=== PATIENT | female | born 1985 | race Caucasian/White ===

== ENCOUNTER → 2017-06-21 | Outpatient (CLI) | payer OTHER ==
[~2017-06-21] MED LIST: IBUP800 PO; Nystatin15 GM TOP; OXYACE5T PO; Percocet 5-3251 EACH PO; STOOL SOFTENER100 MG PO
== END ==
LOC: LAB SHORT 08:36 → PLD 08:36
DX: B97.7 Papillomavirus as the cause of diseases classified elsewhere (principal)
CPT/HCPCS: 88305

== ENCOUNTER → 2017-07-15 | Outpatient (CLI) | payer OTHER ==
[2017-07-16 11:28] LABS: Candida species (DNA Probe) Negative (NEGATIVE); G. vaginalis (DNA Probe) Positive (NEGATIVE); T. vaginalis (DNA Probe) Negative (NEGATIVE)
== END | disposition home or self-care (01) ==
LOC: LAB SHORT 11:24
PROVIDERS: Advanced Practice Midwife
DX: N89.8 Other specified noninflammatory disorders of vagina (principal)
CPT/HCPCS: 87480; 87510; 87660

== ENCOUNTER → 2018-06-13 | Outpatient (CLI) | payer OTHER ==
[2018-06-14 23:13] LABS: CHLAMYDIA TRACHOMATIS, NAA Negative (Negative); HPV 16 Positive (Negative); HPV 18 Negative (Negative); HPV OTHER HR TYPES Positive (Negative); NEISSERIA GONORRHOEAE, NAA Negative (Negative)
== END | disposition home or self-care (01) ==
LOC: LAB 10:48 → LAB SHORT 10:48
PROVIDERS: Obstetrics & Gynecology
DX: Z36.89 Encounter for other specified antenatal screening (principal)
CPT/HCPCS: 87491; 87591; 87624; 87625; G0123

== ENCOUNTER → 2018-09-20 | Outpatient (CLI) | payer OTHER ==
[2018-09-20 18:43] LABS: Hematocrit 40.1 % (33.0-51.0); Hemoglobin 12.9 g/dL (11.5-16.0)
== END | disposition home or self-care (01) ==
LOC: LAB 18:14 → LAB SHORT 18:14
PROVIDERS: Obstetrics & Gynecology
DX: Z34.80 Encounter for supervision of other normal pregnancy, unspecified trimester (principal)
CPT/HCPCS: 82950; 85014; 85018

== ENCOUNTER → 2018-11-27 | Outpatient (CLI) | payer OTHER ==
[~2018-11-27] MED LIST changes: +PRENATAL GUMMI1 EACH
== END | disposition home or self-care (01) ==
LOC: LAB 15:36 → LAB SHORT 15:36
DX: Z34.80 Encounter for supervision of other normal pregnancy, unspecified trimester (principal)
CPT/HCPCS: 87081; 87653

== ENCOUNTER 2018-12-24 02:13 | Inpatient (IN) | payer OTHER ==
[~2018-12-24] VITALS: Ht 157.5 cm; Wt 99.1 kg
[~2018-12-24 02:13] MED LIST changes: -PRENATAL GUMMI1 EACH
[2018-12-24] MEDS ORDERED: PRENATAL GUMMI1 EACH (03:28)
[2018-12-24 03:43] LABS: BASOPHILS ABSOLUTE AUTO 0.04 K/mm3 (0.00-0.23); BASOPHILS PERCENT AUTO 0 % (0-2); EOSINOPHILS ABSOLUTE AUTO 0.17 K/mm3 (0.00-0.68); EOSINOPHILS PERCENT AUTO 1 % (0-6); Hematocrit 42.5 % (33.0-51.0); Hemoglobin 13.9 g/dL (11.5-16.0); IMMATURE GRAN ABSOLUTE AUTO 0.03 K/mm3 (0.00-0.10); IMMATURE GRAN PERCENT AUTO 0 % (0-1); LYMPHOCYTES ABSOLUTE AUTO 2.75 K/mm3 (0.84-5.20); LYMPHOCYTES PERCENT AUTO 23 % (21-46); MONOCYTES ABSOLUTE AUTO 0.99 K/mm3 (0.16-1.47); MONOCYTES PERCENT AUTO 8 % (4-13); Mean Corpuscular HGB 27.4 pg (26.0-34.0); Mean Corpuscular HGB Conc 32.7 g/dL (31.5-36.5); Mean Corpuscular Volume 84 fL (80-100); Mean Platelet Volume 10.4 fL (9.1-12.4); NEUTROPHILS ABSOLUTE AUTO 7.81 K/mm3 (1.96-9.15); NEUTROPHILS PERCENT AUTO 66 % (41-73); Platelet Count 336 K/mm3 (150-400); RDW Coefficient Variation 14.2 % (11.7-14.2); RDW Standard Deviation 43.3 fL (35.1-46.3); Red Blood Cell Count 5.08 M/mm3 (3.80-5.20); White Blood Cell Count 11.79 K/mm3 (4.00-11.30)
[2018-12-24 11:44] LABS: PCO2 Cord - Venous 43.3 mmHg (40-50); PO2 Cord - Venous 19.7 mmHg (28-32); pH Umbilical Cord - Venous 7.32 (7.26-7.35)
--- NOTE | 2018-12-24 14:02 | NUR ---
CONSULT OF . MOM HAS USED SHIELD ON RIGHT NIPPLE WITH OTHER CHILDREN AND STOPS BF DUE TO PAIN. BOTH NIPPLES ARE SHORT SHANKED, RIGHT SIDE CENTER IS INVERTED BUT STILL ERECT. RELEASING COLOSTRUM EASILY. BABY HAS BF DIRECT ON LEFT, USED SHIELD ON RIGHT, BUT IS STILL ROOTING. DIRECT LATCHED ON RIGHT SIDE AFTER A COUPLE ATTEMPTS, MOVING BREAST TISSUE WITH SUCKLING AND MOM STATES IT IS COMFORTABLE. INSTRUCT IN CHANGES TO EXPECT DURING THE FIRST WEEK WITH FEEDINGS AND WITH BABY, AND REFERRED TO PAGE 18 IN BF BOOKLET FOR PHOTOS AND INFORMATION. PARENTS LOVING WITH BABY.
--- NOTE | 2018-12-24 14:40 | NUR ---
REPORT TAKEN ASSUMED CARE; PT AMBULATED TO [place]
--- NOTE | 2018-12-24 19:01 | NUR ---
REPORT TO WILLIAM HUBBARD RN
[2018-12-25 05:15] LABS: Hematocrit 37.5 % (33.0-51.0); Hemoglobin 12.1 g/dL (11.5-16.0); Mean Corpuscular HGB 27.3 pg (26.0-34.0); Mean Corpuscular HGB Conc 32.3 g/dL (31.5-36.5); Mean Corpuscular Volume 85 fL (80-100); Mean Platelet Volume 9.8 fL (9.1-12.4); Platelet Count 260 K/mm3 (150-400); RDW Coefficient Variation 14.4 % (11.7-14.2); RDW Standard Deviation 44.1 fL (35.1-46.3); Red Blood Cell Count 4.43 M/mm3 (3.80-5.20); White Blood Cell Count 12.96 K/mm3 (4.00-11.30)
--- NOTE | 2018-12-25 09:00 | NUR ---
MOM HOLDING NB, MOM IS FEELING VERY FRUSTRATED WITH FRITZ CROFT RN CALLED TO ROOM. DECIDED ON USING A SHIELD. PT IS A HEAVY SMOKER, DISCUSSED NICODINE WITHDRAWL. PT AWARE. WILL CONT TO SUPPORT PT, SHE HAS TAKEN A BREAK TO WALK NB IS VERY FUSSY. PLAN TO DC HOME TODAY, WORKING ON PAPERWORK, DECIDING ON A NAME.
--- NOTE | 2018-12-25 10:43 | NUR ---
FOLLOW UP. HE DID NOT LATCH TO FEED WELL THROUGH THE NIGHT. CURRENTLY CRYING AT BREAST, EVEN WHEN DROPS OF COLOSTRUM INTO HIS MOUTH. REFUSED TO TRY AND LATCH DIRECTLY TO SHORT SHANKED NIPPLE. FINALLY DID SUCKLE ON FINGER, AFTER MUCH BITING AND FUSSING. PALATE IS FAIRLY HIGH. PLAN IS TO USE SHIELD THROUGH ENGORGEMENT, THEN WEAN FROM USE. HE DOES LATCH AND SUCK ON SHIELD WELL AND HAS GOOD SUCTION WHEN HE CHOOSES TO COORDINATE HIS SUCK. MOM OK WITH THIS PLAN AND WILL F/U FURTHER IN OUTPATIENT CLINIC. QUESTIONS ANSWERED.
--- NOTE | 2018-12-25 11:10 | NUR ---
INITIAL ADMISSION SCREENING DONE AGAIN TO CHECK DOCUMENTATION FLOW FOR QI-PER KAREN COREAS RN
[2018-12-25] MEDS ORDERED: IBUP800 PO (12:16)
--- NOTE | 2018-12-25 13:01 | NUR ---
BEEN IN ROOM 3X FOR VITALS, MOM HAS BEEN OUT TO SMOKE ALL 3 TIMES.
--- NOTE | 2018-12-25 14:45 | NUR ---
ALL DC INSTRUCTIONS GONE OVER, ALL QUESTIONS ANSWERED. BANDS MATCHED. DC HOME WITH NB.
== END 2018-12-25 14:40 | disposition home or self-care (01) | DRG 807 ==
LOC: OBS 02:13 → BC 02:14 → OBS 03:11 → BC 03:15
PROVIDERS: ADMIT Obstetrics & Gynecology
PROC: 3E0R3BZ Introduction of Anesthetic Agent into Spinal Canal, Percutaneous Approach (ICD-10-PCS; 2018-12-24)
PROC: 10E0XZZ Delivery of Products of Conception, External Approach (ICD-10-PCS; principal; 2018-12-25)
DX: O77.0 Labor and delivery complicated by meconium in amniotic fluid (principal); Z37.0 Single live birth; Z3A.39 39 weeks gestation of pregnancy; O99.334 Smoking (tobacco) complicating childbirth; F17.200 Nicotine dependence, unspecified, uncomplicated
CPT/HCPCS: 36415; 51702; 82803; 85025; 85027; 87081; J2001; J3010; J7120

== ENCOUNTER → 2019-02-28 | Outpatient (CLI) | payer OTHER ==
[~2019-02-28] MED LIST changes: +PRENATAL GUMMI1 EACH
[2019-03-02 15:07] LABS: HPV 16 Positive (Negative); HPV 18 Negative (Negative); HPV OTHER HR TYPES Positive (Negative)
== END | disposition home or self-care (01) ==
LOC: LAB 16:42 → LAB SHORT 16:42
PROVIDERS: Obstetrics & Gynecology
DX: Z01.419 Encounter for gynecological examination (general) (routine) without abnormal findings (principal); R87.618 Other abnormal cytological findings on specimens from cervix uteri
CPT/HCPCS: 87624; 87625; 88142

== ENCOUNTER → 2019-07-20 | Outpatient (CLI) | payer OTHER | END | disposition home or self-care (01) | LOC: LAB SHORT 13:40 → PLD 13:40 | DX: N72 Inflammatory disease of cervix uteri (principal) | CPT/HCPCS: 88305 ==

== ENCOUNTER → 2020-03-08 | Outpatient (CLI) | payer OTHER | END | disposition home or self-care (01) | LOC: LAB SHORT 12:14 → LAB EV 12:14 | DX: B34.9 Viral infection, unspecified (principal); J03.90 Acute tonsillitis, unspecified; Z20.828 Contact with and (suspected) exposure to other viral communicable diseases | CPT/HCPCS: 87081; U0003 ==

== ENCOUNTER → 2020-03-18 | Outpatient (CLI) | payer OTHER ==
[2020-03-19 13:10] LABS: HPV 16 Negative (Negative); HPV 18 Negative (Negative); HPV OTHER HR TYPES Positive (Negative)
== END | disposition home or self-care (01) ==
LOC: LAB SHORT 15:15 → LAB 15:15
PROVIDERS: Obstetrics & Gynecology
DX: Z01.419 Encounter for gynecological examination (general) (routine) without abnormal findings (principal)
CPT/HCPCS: 87624; G0123

== ENCOUNTER → 2020-03-26 | Outpatient (CLI) | payer OTHER ==
[2020-03-26 14:17] LABS: Candida species (DNA Probe) Negative (NEGATIVE); G. vaginalis (DNA Probe) Positive (NEGATIVE); T. vaginalis (DNA Probe) Negative (NEGATIVE)
== END | disposition home or self-care (01) ==
LOC: LAB SHORT 11:15 → LAB EV 11:15
PROVIDERS: Physician Assistant
DX: R30.9 Painful micturition, unspecified (principal)
CPT/HCPCS: 87086; 87480; 87510; 87660

== ENCOUNTER → 2020-11-24 | Outpatient (CLI) | payer OTHER ==
[~2020-11-24] MED LIST changes: +ASPI81CH PO; +DOCU100 PO
== END | disposition home or self-care (01) ==
LOC: LAB 16:41 → LAB SHORT 16:41
DX: O09.892 Supervision of other high risk pregnancies, second trimester (principal)
CPT/HCPCS: 87081; 87150

== ENCOUNTER 2020-12-26 06:01 | Inpatient (IN) | payer OTHER ==
[~2020-12-26] VITALS: Ht 157.5 cm; Wt 100.0 kg
[~2020-12-26 06:01] MED LIST changes: -ASPI81CH PO; -DOCU100 PO
[2020-12-26] MEDS ORDERED: ASPI81CH PO (06:34)
[2020-12-26 06:43] LABS: BASOPHILS ABSOLUTE AUTO 0.03 K/mm3 (0.00-0.23); BASOPHILS PERCENT AUTO 0 % (0-2); EOSINOPHILS ABSOLUTE AUTO 0.15 K/mm3 (0.00-0.68); EOSINOPHILS PERCENT AUTO 2 % (0-6); Hematocrit 39.3 % (33.0-51.0); IMMATURE GRAN ABSOLUTE AUTO 0.02 K/mm3 (0.00-0.10); IMMATURE GRAN PERCENT AUTO 0 % (0-1); LYMPHOCYTES ABSOLUTE AUTO 2.07 K/mm3 (0.84-5.20); LYMPHOCYTES PERCENT AUTO 25 % (21-46); MONOCYTES ABSOLUTE AUTO 0.65 K/mm3 (0.16-1.47); MONOCYTES PERCENT AUTO 8 % (4-13); Mean Corpuscular HGB 27.5 pg (26.0-34.0); Mean Corpuscular HGB Conc 33.1 g/dL (31.5-36.5); Mean Corpuscular Volume 83 fL (80-100); Mean Platelet Volume 9.9 fL (9.1-12.4); NEUTROPHILS ABSOLUTE AUTO 5.43 K/mm3 (1.96-9.15); NEUTROPHILS PERCENT AUTO 65 % (41-73); Platelet Count 276 K/mm3 (150-400); RDW Coefficient Variation 13.8 % (11.7-14.2); RDW Standard Deviation 42.2 fL (35.1-46.3); Red Blood Cell Count 4.72 M/mm3 (3.80-5.20); White Blood Cell Count 8.35 K/mm3 (4.00-11.30)
[2020-12-26 07:11] LABS: SARS-Cov-2 (COVID-19) PCR, MMC NEGATIVE (NEGATIVE)
--- NOTE | 2020-12-26 20:06 | NUR ---
Mom was attempting to feed baby.
--- NOTE | 2020-12-27 03:02 | NUR ---
Mom was prepping top feed baby. Nothing needed at this time.
[2020-12-27 05:13] LABS: BASOPHILS ABSOLUTE AUTO 0.04 K/mm3 (0.00-0.23); BASOPHILS PERCENT AUTO 0 % (0-2); EOSINOPHILS ABSOLUTE AUTO 0.31 K/mm3 (0.00-0.68); EOSINOPHILS PERCENT AUTO 3 % (0-6); Hematocrit 36.4 % (33.0-51.0); Hemoglobin 11.9 g/dL (11.5-16.0); IMMATURE GRAN ABSOLUTE AUTO 0.04 K/mm3 (0.00-0.10); IMMATURE GRAN PERCENT AUTO 0 % (0-1); LYMPHOCYTES ABSOLUTE AUTO 2.76 K/mm3 (0.84-5.20); LYMPHOCYTES PERCENT AUTO 25 % (21-46); MONOCYTES ABSOLUTE AUTO 0.82 K/mm3 (0.16-1.47); MONOCYTES PERCENT AUTO 8 % (4-13); Mean Corpuscular HGB Conc 32.7 g/dL (31.5-36.5); Mean Corpuscular Volume 86 fL (80-100); Mean Platelet Volume 9.9 fL (9.1-12.4); NEUTROPHILS ABSOLUTE AUTO 7.02 K/mm3 (1.96-9.15); NEUTROPHILS PERCENT AUTO 64 % (41-73); Platelet Count 239 K/mm3 (150-400); RDW Coefficient Variation 14.1 % (11.7-14.2); RDW Standard Deviation 43.4 fL (35.1-46.3); Red Blood Cell Count 4.25 M/mm3 (3.80-5.20); White Blood Cell Count 10.99 K/mm3 (4.00-11.30)
[2020-12-27] MEDS ORDERED: IBUP800 PO (09:54)
[2020-12-27] MEDS ORDERED: DOCU100 PO (09:54)
--- NOTE | 2020-12-28 17:23 | NUR ---
NO SHOW FOR SCHEDULED PP FOLLOW UP APPT. MESSAGE LEFT ON HER CELL PHONE TO RESCHEDULE HER APPT TO TOMORROW.
== END 2020-12-27 12:50 | disposition home or self-care (01) | DRG 807 ==
LOC: OBS 06:01 → BC 06:01 → OBS 06:07 → BC 23:48
PROVIDERS: ADMIT Obstetrics & Gynecology
PROC: 10E0XZZ Delivery of Products of Conception, External Approach (ICD-10-PCS; principal; 2020-12-26)
PROC: 10907ZC Drainage of Amniotic Fluid, Therapeutic from Products of Conception, Via Natural or Artificial Opening (ICD-10-PCS; 2020-12-26)
PROC: 00HU33Z Insertion of Infusion Device into Spinal Canal, Percutaneous Approach (ICD-10-PCS; 2020-12-26)
PROC: 3E0R3BZ Introduction of Anesthetic Agent into Spinal Canal, Percutaneous Approach (ICD-10-PCS; 2020-12-26)
PROC: 3E033VJ Introduction of Other Hormone into Peripheral Vein, Percutaneous Approach (ICD-10-PCS; 2020-12-26)
DX: O99.214 Obesity complicating childbirth (principal); Z37.0 Single live birth; O76 Abnormality in fetal heart rate and rhythm complicating labor and delivery; Z20.822 Contact with and (suspected) exposure to COVID-19; Z67.10 Type A blood, Rh positive; Z3A.40 40 weeks gestation of pregnancy
CPT/HCPCS: 36415; 51702; 85025; 86850; 86900; 86901; A9270; J1885; J2001; J2210; J2590; J3010; J7120; U0004

== ENCOUNTER → 2022-02-04 | Outpatient (CLI) | payer OTHER ==
[~2022-02-04] MED LIST changes: +ASPI81CH PO; +DOCU100 PO
[2022-02-04 13:03] LABS: Source, Urine Clean Catch
[2022-02-04 15:18] LABS: Appearance, Urine Hazy (Clear); Bilirubin, Urine Neg (Neg); Blood, Urine 2+ (Neg); Color, Urine Amber (P-Yellow); Glucose Qualitative, Urine Neg (Neg); Ketones, Urine Neg (Neg); Leukocyte Esterase, Urine 3+ (Neg); Nitrite, Urine Pos (Neg); Protein, Urine 2+ (Neg); Specific Gravity, Urine 1.025 (1.003-1.022); Urobilinogen, Urine 1+ (Normal)
[2022-02-04 15:38] LABS: Calcium Oxalate Crystals Few /hpf; White Blood Cells, Urine TNTC /hpf (0-5)
[2022-02-04 15:39] LABS: Bacteria Many /hpf; Squamous Epithelial Cells Few /hpf (Few); Transitional Epithelial Cells Few /hpf (0-Rare)
== END | disposition home or self-care (01) ==
LOC: LAB 10:45 → LAB SHORT 10:45
PROVIDERS: Obstetrics & Gynecology
DX: R30.9 Painful micturition, unspecified (principal)
CPT/HCPCS: 81001; 87077; 87086; 87186

== ENCOUNTER → 2022-02-05 | Outpatient (CLI) | payer OTHER ==
[2022-02-06 13:45] LABS: Candida species (DNA Probe) Negative (NEGATIVE); G. vaginalis (DNA Probe) Positive (NEGATIVE); T. vaginalis (DNA Probe) Negative (NEGATIVE)
[2022-02-07 03:37] LABS: CHLAMYDIA TRACHOMATIS, NAA Negative (Negative)
== END | disposition home or self-care (01) ==
LOC: LAB SHORT 13:34 → LAB 13:34
PROVIDERS: Obstetrics & Gynecology
DX: Z11.3 Encounter for screening for infections with a predominantly sexual mode of transmission (principal); N76.0 Acute vaginitis
CPT/HCPCS: 87480; 87491; 87510; 87591; 87660

== ENCOUNTER 2024-03-28 11:23 | Day surgery (SDC) | payer OTHER ==
[~2024-03-28] VITALS: Ht 157.5 cm; Wt 84.8 kg
[~2024-03-28 11:23] MED LIST changes: +Lactated Ringer's 1,000 ML IV ONE; +propofoL 50 ML IV ONE
[2024-03-28] MEDS ORDERED: Lactated Ringer's 1,000 ML IV ONE (13:17)
[2024-03-28 14:38] VITALS: BP 129/101
== END 2024-03-28 14:37 | disposition home or self-care (01) ==
LOC: ORSCSDS 11:23
PROVIDERS: Internal Medicine Gastroenterology
PROC: 0DJD8ZZ Inspection of Lower Intestinal Tract, Via Natural or Artificial Opening Endoscopic (ICD-10-PCS; principal; 2024-03-28 13:00)
DX: K62.5 Hemorrhage of anus and rectum (principal); K62.89 Other specified diseases of anus and rectum; K59.09 Other constipation
CPT/HCPCS: J2704; J7120